=== PATIENT | female | born 1990 | race Caucasian/White ===

== ENCOUNTER 2024-04-01 06:28 | Outpatient (REF) | payer OTHER, SELFPAY ==
--- NOTE | ~2024-04-01 | US_ITS ---
EXAMINATION: US PELVIS CLINICAL INFORMATION: Breakthrough bleeding COMPARISON: None available. TECHNIQUE: Ultrasound of the pelvis is performed using both transabdominal and transvaginal transducers along with Doppler. Transvaginal imaging is performed due to inadequate visualization transabdominally. FINDINGS: Uterus: The uterus is anteverted and measures 8.8 x 4.4 x 6.0 cm. The double wall endometrial thickness is 12 mm. The uterus is smooth in contour and has normal myometrial echogenicity. No visible fibroid. Adnexa: Both ovaries are visualized. There is normal color flow to the adnexa. There is no ovarian torsion. There is no pelvic ascites or fluid collection. Right ovary measures 1.8 x 2.5 x 1.6 cm for a volume of 3.9 mL. Left ovary measures 3.3 x 3.5 x 2.7 cm for a volume of 17.0 mL which includes a benign 2.4 x 2.7 x 2.2 cm cyst. US/US pelvic and transvaginal IMPRESSION: Unremarkable pelvic ultrasound. Electronically signed by: Barron Sepulveda MD 04/02/2024 05:41 PM EDT
== END 2024-04-01 06:29 | disposition home or self-care (01) ==
LOC: HO.UMASIMG 06:28
PROVIDERS: Visit Provider Nurse Practitioner Women's Health
DX: N92.6 Irregular menstruation, unspecified (principal); N93.0 Postcoital and contact bleeding
CPT/HCPCS: 76830; 76856